=== PATIENT | male | born 1945 | race African-American/Black ===

== ENCOUNTER 2019-10-25 14:25 | Inpatient (IN) | payer MEDICARE, MEDICAID ==
[~2019-10-25] VITALS: Ht 304.8 cm; Wt 60.9 kg
[2019-10-25] MEDS ORDERED: FUROSEMIDE 40MG/4ML VIAL IV ONE (16:15)
[2019-10-25] MEDS ORDERED: ASPIRIN 81MG TABLET PO ONE (16:15)
[2019-10-25] MEDS ORDERED: NITROGLYCERIN OINT 1GM/INCH UDPKT TD ONE (16:15)
[2019-10-25 16:24] LABS: BASOPHILS % 0.4 % (0.0-2.0); EOSINOPHILS % 0.2 % (0.0-5.0); HEMATOCRIT. 43.5 % (42.0-52.0); HEMOGLOBIN. 14.8 g/dL (14.0-18.0); LYMPHOCYTES % 10.8 % (20.0-50.0); MEAN CORPUSCULAR HEMOGLOBIN 30.6 pg (28.0-32.0); MEAN CORPUSCULAR VOLUME 89.8 fL (80.0-94.0); MEAN PLATELET VOLUME 10.3 fl (7.4-10.4); NEUTROPHILS % 79.6 % (40.0-76.0); PLATELET 133 x1000/uL (130-400); RED BLOOD CELL COUNT 4.84 mill/uL (4.7-6.1); RED CELL DISTRIBUTION WIDTH 14.8 % (11.6-14.6)
[2019-10-25 16:31] LABS: CHLORIDE 106 mEq/L (98-107)
[2019-10-25 16:34] LABS: INR 1.1; PARTIAL THROMBOPLASTIN TIME 27.2 sec (23.4-31.0); PROTHROMBIN TIME 11.4 sec (9.6-11.0)
[2019-10-25] MEDS ORDERED: CLONIDINE 0.1MG TABLET PO PRN (19:30)
[2019-10-25] MEDS ORDERED: DIPHENHYDRAMINE 50MG/ML VIAL IV PRN (19:30)
[2019-10-25] MEDS ORDERED: MAGNESIUM HYDROXIDE 400MG/5ML 30ML UDC PO PRN (19:30)
[2019-10-25] MEDS ORDERED: ZOLPIDEM TARTRATE 5MG TABLET PO PRN (19:30)
[2019-10-25] MEDS ORDERED: IPRATROPIUM/ALBUTEROL 0.5-3(2.5)MG/3ML NEB HHN PRN (19:30)
[2019-10-25] MEDS ORDERED: ONDANSETRON HCL 4MG/2ML INJ IV PRN (19:30)
[2019-10-25] MEDS ORDERED: GUAIFENESIN 200MG/10ML SUGAR FREE UDC PO PRN (19:30)
[2019-10-25] MEDS ORDERED: ACETAMINOPHEN 325MG TABLET PO PRN ×2 (19:30)
[2019-10-25] MEDS: ENOXAPARIN 40MG/0.4ML SYR SUBCUT SCH (21:00)
[2019-10-25] MEDS: ISOSORBIDE DINITRATE 30MG TABLET PO SCH (21:08)
[2019-10-25 23:12] VITALS: BP 130/88
[2019-10-25] MEDS: HYDRALAZINE HCL 100MG TABLET PO SCH (23:34)
[2019-10-25] MEDS: SODIUM CHLORIDE 0.9% INJ 3ML FLUSH IVF SCH (23:34)
[2019-10-26] VITALS (7 sets, daily range): BP systolic 95–138; BP diastolic 50–96
[2019-10-26] MEDS: ISOSORBIDE DINITRATE 30MG TABLET PO SCH ×2 (05:00→13:00)
[2019-10-26] MEDS: HYDRALAZINE HCL 100MG TABLET PO SCH ×2 (05:07→13:44)
[2019-10-26] MEDS: FUROSEMIDE 40MG/4ML VIAL IVP SCH ×2 (06:29→17:32)
[2019-10-26] MEDS: SODIUM CHLORIDE 0.9% INJ 3ML FLUSH IVF SCH ×3 (06:29→21:57)
[2019-10-26] MEDS ORDERED: METOLAZONE 10MG TABLET PO SCH (06:30)
[2019-10-26] MEDS: ASPIRIN 81MG EC TABLET PO SCH (08:15)
[2019-10-26] MEDS: DOCUSATE SODIUM 250MG CAPSULE PO SCH (08:16)
[2019-10-26] MEDS: POTASSIUM CHLORIDE 20MEQ TABLET SR PO SCH (08:16)
[2019-10-26] MEDS: ISOSORBIDE DINITRATE 20MG TABLET PO SCH (17:00)
[2019-10-26] MEDS: ENOXAPARIN 40MG/0.4ML SYR SUBCUT SCH (21:57)
[2019-10-26] MEDS: CARVEDILOL 3.125 MG TABLET PO SCH (21:57)
[2019-10-26] MEDS: HYDRALAZINE HCL 50MG TABLET PO SCH (21:57)
[2019-10-27] VITALS: BP 98/64
[2019-10-27 04:00] VITALS: BP 104/69
[2019-10-27] MEDS: HYDRALAZINE HCL 50MG TABLET PO SCH (05:26)
[2019-10-27] MEDS: SODIUM CHLORIDE 0.9% INJ 3ML FLUSH IVF SCH ×3 (06:07→21:10)
[2019-10-27] MEDS: FUROSEMIDE 40MG/4ML VIAL IVP SCH ×2 (06:15→17:58)
[2019-10-27 07:48] VITALS: BP 108/73
[2019-10-27] MEDS: DOCUSATE SODIUM 250MG CAPSULE PO SCH (08:36)
[2019-10-27] MEDS: ISOSORBIDE DINITRATE 20MG TABLET PO SCH (08:37)
[2019-10-27] MEDS: POTASSIUM CHLORIDE 20MEQ TABLET SR PO SCH (08:37)
[2019-10-27] MEDS: ASPIRIN 81MG EC TABLET PO SCH (08:37)
[2019-10-27] MEDS: CARVEDILOL 3.125 MG TABLET PO SCH (08:37)
[2019-10-27 12:00] VITALS: BP 105/86
[2019-10-27] MEDS ORDERED: ACETAMINOPHEN WITH CODEINE 300/30MG TABLET PO PRN (14:30)
[2019-10-27] MEDS: ACETAMINOPHEN WITH CODEINE 300/30MG TABLET PO PRN ×2 (14:39→21:10)
[2019-10-27 15:46] LABS: PHOSPHORUS 4.7 mg/dL (2.5-4.9)
[2019-10-27 16:00] VITALS: BP 101/56
[2019-10-27 20:00] VITALS: BP 104/65
[2019-10-27] MEDS: LISINOPRIL 10MG TABLET PO SCH (21:00)
[2019-10-27] MEDS: CARVEDILOL 12.5MG TABLET PO SCH (21:00)
[2019-10-27] MEDS: ENOXAPARIN 40MG/0.4ML SYR SUBCUT SCH (21:11)
[2019-10-28] VITALS (8 sets, daily range): BP systolic 77–129; BP diastolic 45–82
[2019-10-28] MEDS: SODIUM CHLORIDE 0.9% INJ 3ML FLUSH IVF SCH ×3 (05:43→21:06)
[2019-10-28] MEDS: ACETAMINOPHEN WITH CODEINE 300/30MG TABLET PO PRN (06:02)
[2019-10-28] MEDS: FUROSEMIDE 40MG/4ML VIAL IVP SCH ×2 (06:15→17:04)
[2019-10-28 07:39] LABS: CHLORIDE 94 mEq/L (98-107)
[2019-10-28] MEDS: CARVEDILOL 12.5MG TABLET PO SCH (09:00)
[2019-10-28] MEDS ORDERED: POTASSIUM CHLORIDE 20MEQ TABLET SR PO SCH (09:15)
[2019-10-28] MEDS: ASPIRIN 81MG EC TABLET PO SCH (09:26)
[2019-10-28] MEDS: LISINOPRIL 10MG TABLET PO SCH (09:26)
[2019-10-28] MEDS: DOCUSATE SODIUM 250MG CAPSULE PO SCH (09:26)
[2019-10-28] MEDS: POTASSIUM CHLORIDE 20MEQ TABLET SR PO SCH (09:27)
[2019-10-28] MEDS ORDERED: MAGNESIUM 2 G PREMIX 50 ML IV SCH (10:00)
[2019-10-28] MEDS ORDERED: POTASSIUM CHLORIDE 20MEQ TABLET SR PO ONE (10:15)
[2019-10-28] MEDS ORDERED: SODIUM CHLORIDE 0.9% 250 ML IV ONE (20:15)
[2019-10-28] MEDS: ENOXAPARIN 40MG/0.4ML SYR SUBCUT SCH ×2 (21:00→21:06)
[2019-10-28] MEDS: CARVEDILOL 6.25 MG TABLET PO SCH (21:00)
[2019-10-28] MEDS: LISINOPRIL 5MG TABLET PO SCH (21:00)
[2019-10-29] VITALS: BP 105/70
[2019-10-29 04:00] VITALS: BP 125/75
[2019-10-29] MEDS: SODIUM CHLORIDE 0.9% INJ 3ML FLUSH IVF SCH ×2 (05:19→14:00)
[2019-10-29] MEDS: FUROSEMIDE 40MG/4ML VIAL IVP SCH (06:44)
[2019-10-29 08:00] VITALS: BP 127/77
[2019-10-29] MEDS: DOCUSATE SODIUM 250MG CAPSULE PO SCH (08:31)
[2019-10-29] MEDS: ASPIRIN 81MG EC TABLET PO SCH (08:32)
[2019-10-29] MEDS: POTASSIUM CHLORIDE 20MEQ TABLET SR PO SCH (08:32)
[2019-10-29] MEDS: CARVEDILOL 6.25 MG TABLET PO SCH (08:41)
[2019-10-29] MEDS: LISINOPRIL 5MG TABLET PO SCH (08:42)
[2019-10-29 09:54] LABS: CHLORIDE 93 mEq/L (98-107)
[2019-10-29 12:00] VITALS: BP 108/60
[2019-10-29 15:59] VITALS: BP 108/60
[2019-10-29] MEDS ORDERED: SODIUM CHLORIDE 0.9% 250 ML IV ONE (20:15)
== END 2019-10-29 16:35 | disposition home or self-care (01) | DRG 292 ==
LOC: ER 14:25 → MICUSO 19:13 → 6WST 23:18
PROVIDERS: ADMIT Internal Medicine; ATTEND Internal Medicine
DX: I11.0 Hypertensive heart disease with heart failure (principal); I47.2 Ventricular tachycardia; I42.9 Cardiomyopathy, unspecified; I27.20 Pulmonary hypertension, unspecified; E87.6 Hypokalemia; I25.10 Atherosclerotic heart disease of native coronary artery without angina pectoris; N47.1 Phimosis; J44.9 Chronic obstructive pulmonary disease, unspecified; I50.43 Acute on chronic combined systolic (congestive) and diastolic (congestive) heart failure; M19.90 Unspecified osteoarthritis, unspecified site; Z79.82 Long term (current) use of aspirin; Z95.0 Presence of cardiac pacemaker; Z79.899 Other long term (current) drug therapy; Z87.891 Personal history of nicotine dependence; Z91.19 Patient's noncompliance with other medical treatment and regimen; Z85.841 Personal history of malignant neoplasm of brain
CPT/HCPCS: 36415; 71045; 76870; 80048; 80053; 82550; 82553; 82962; 83735; 83880; 84100; 84484; 84550; 85025; 86430; 93005; 93306; 93970; 93976; 99285; J1650; J1940; J3475; J7050

== ENCOUNTER → 2019-11-19 | Outpatient (CLI) | payer MEDICARE, MEDICAID | END | disposition home or self-care (01) | LOC: RAD 13:44 | PROVIDERS: ATTEND Podiatrist Foot & Ankle Surgery | DX: M19.072 Primary osteoarthritis, left ankle and foot (principal) | CPT/HCPCS: 73610 ==